=== PATIENT | female | born 1990 | race African-American/Black ===

== ENCOUNTER 2016-11-07 12:37 | Emergency (ER) | payer OTHER ==
[~2016-11-07] VITALS: Ht 160 cm; Wt 81.7 kg
[2016-11-07 13:08] LABS: URINE BLOOD TRACE (Negative); URINE COLOR YELLOW; URINE GLUCOSE-RANDOM* NEGATIVE (Negative); URINE KETONES 1+ (Negative); URINE NITRITE NEGATIVE (Negative); URINE PROTEIN (DIPSTICK) TRACE (Negative); URINE SPECIFIC GRAVITY >= 1.030 (1.003-1.035)
[2016-11-07 13:12] LABS: ICTOTEST (BILI CONFIRMATORY) Negative (Negative); URINE BILIRUBIN NEGATIVE (Negative)
[2016-11-07 13:27] LABS: ABSOLUTE NEUTROPHILS 4.4 thou/uL (1.4-8.2); BASOPHILS 0.7 % (0.0-2.0); EOSINOPHILS 0.3 % (0.0-3.0); HEMATOCRIT 38.1 % (37.0-47.0); HEMOGLOBIN 13.1 gm/dL (12.0-15.0); LYMPHOCYTES 27.1 % (24.0-44.0); MCH 32.3 pg (26.0-34.0); MCHC 34.3 g/dL (28.0-37.0); MCV 94.1 fL (80.0-100.0); MONOCYTES 4.9 % (1.0-8.0); PLATELET COUNT 274 thou/uL (150-400); RBC 4.05 mil/uL (4.20-5.00); WBC 6.6 thou/uL (4.0-11.0)
[2016-11-07 13:31] LABS: MANUAL DIFF NO
[2016-11-07 13:39] LABS: CALCIUM 9.5 mg/dL (8.5-10.1); CREATININE 0.7 mg/dL (0.6-1.0); POTASSIUM 3.3 mmol/L (3.5-5.1)
[2016-11-07 13:52] LABS: SQUAMOUS >10 Many /LPF (0-3)
[2016-11-07 13:53] LABS: CASTS None Seen /LPF (None Seen); CRYSTALS None Seen /LPF (None Seen); URINE RBC 0-2 Rare /HPF (0-2); URINE WBC 6-15 Few /HPF (0-5)
[2016-11-07 13:54] LABS: BACTERIA 1-9 Few /HPF (None Seen)
[2016-11-07] MEDS ORDERED: ONDANSETRON HCL4 M2 PO (15:13)
[2016-11-07 15:25] VITALS: BP 142/74
== END 2016-11-07 15:26 | disposition home or self-care (01) ==
LOC: ER 12:37
PROVIDERS: Nurse Practitioner
DX: O26.891 Other specified pregnancy related conditions, first trimester (principal); Z3A.01 Less than 8 weeks gestation of pregnancy; R11.2 Nausea with vomiting, unspecified; R10.32 Left lower quadrant pain; R10.2 Pelvic and perineal pain; F12.10 Cannabis abuse, uncomplicated; Z87.891 Personal history of nicotine dependence